=== PATIENT | male | born 2005 | race Hispanic/Latino ===

== ENCOUNTER 2025-08-15 02:06 | Emergency (ER) | payer OTHER, SELFPAY | END 2025-08-15 04:36 | LOC: EEVIPCON 02:06 → ERS 02:06 | DX: Z04.3 Encounter for examination and observation following other accident (principal); Z02.89 Encounter for other administrative examinations; V89.2XXA Person injured in unspecified motor-vehicle accident, traffic, initial encounter; Y92.410 Unspecified street and highway as the place of occurrence of the external cause | CPT/HCPCS: 36416; 70450; 72125; 93005 ==